=== PATIENT | male | born 1990 | race Asian ===

== ENCOUNTER → 2020-01-25 | Outpatient (CLI) | payer OTHER ==
[2020-01-26 01:08] LABS: RUBELLA AB IGG-REFLAB 7.39 index (Immune >0.99)
[2020-01-26 07:06] LABS: RUBEOLA (MEASLES) IGG 23.1 AU/mL (Immune >16.4)
== END | disposition home or self-care (01) ==
LOC: LABPV 09:52
PROVIDERS: ATTEND Internal Medicine
DX: Z02.1 Encounter for pre-employment examination (principal)
CPT/HCPCS: 86706; 86735; 86762; 86765; 86787